=== PATIENT | male | born 1975 ===

== ENCOUNTER 2022-08-24 09:50 | Day surgery (SDC) | payer OTHER ==
[~2022-08-24] VITALS: Ht 177.8 cm; Wt 108.9 kg
[2022-08-24] MEDS ORDERED: diphenhydrAMINE 50 MG/ML VIAL ONE (10:41)
[2022-08-24] MEDS ORDERED: fentaNYL citrate 0.05 MG/ML VIAL ONE (10:42)
[2022-08-24] MEDS ORDERED: MIDAZOLAM 5 MG/5 ML VIAL ONE (10:42)
[2022-08-24] MEDS ORDERED: MIDAZOLAM 2 MG/2 ML VIAL IVP ONE (13:45)
[2022-08-24] MEDS ORDERED: fentaNYL citrate 0.05 MG/ML VIAL IVP ONE (13:45)
[2022-08-24] MEDS ORDERED: diphenhydrAMINE 50 MG/ML VIAL IVP ONE (13:45)
== END 2022-08-24 13:41 | disposition home or self-care (01) ==
LOC: MDS 09:50 → MMU 09:50 → MDS 13:41
PROVIDERS: ATTEND Internal Medicine Gastroenterology
DX: R13.10 Dysphagia, unspecified (principal); K29.50 Unspecified chronic gastritis without bleeding; B96.81 Helicobacter pylori [H. pylori] as the cause of diseases classified elsewhere; K21.00 Gastro-esophageal reflux disease with esophagitis, without bleeding; Z80.1 Family history of malignant neoplasm of trachea, bronchus and lung; Z90.49 Acquired absence of other specified parts of digestive tract; Z20.822 Contact with and (suspected) exposure to COVID-19
CPT/HCPCS: 43239; 87426; J1200; J2250; J3010